=== PATIENT | male | born 1990 ===

== ENCOUNTER 2017-12-06 21:00 | Emergency (ER) | payer SELFPAY ==
[2017-12-06] MEDS ORDERED: Naproxen TAB* 250 MG PO ONE (22:45)
--- NOTE | 2017-12-06 22:52 | UC ---
Complaint Male HPI - HPI Summary HPI Summary: 27 yo HM recently moved from [place] c/o right testicular pain associated with swelling, erythema and tenderness noted this AM, denies penile d/c, dysuria, currently not sexually active, no f/c or playing sports, came in because he couldn't "take the pain anymore" - History of Current Complaint Chief Complaint: UCGeneralIllness Stated Complaint: GROIN PAIN Time Seen by Provider: 12/06/17 22:23 Hx Obtained From: Patient Onset/Duration: Sudden Onset, Still Present Timing: Constant Severity Initially: Moderate Severity Currently: Moderate Pain Intensity: 8 - Allergies/Home Medications Allergies/Adverse Reactions: Allergies Allergy/AdvReac Type Severity Reaction Status Date / Time No Known Allergies Allergy Verified 12/06/17 22:27 Home Medications: Home Medications NK [No Home Medications Reported] 12/06/17 [History Confirmed 12/06/17] PMH/Surg Hx/FS Hx/Imm Hx - Additional Past Medical History Additional PMH: 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 - Surgical History Surgical History: Yes Surgery Procedure, Year, and Place: 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 - Social History Alcohol Use: Occasionally Substance Use Type: None Smoking Status (MU): Light Every Day Tobacco Smoker Type: Cigarettes Amount Used/How Often: < 1/2 ppd Review of Systems Constitutional: Negative Skin: Negative Eyes: Negative ENT: Negative Respiratory: Negative Cardiovascular: Negative Gastrointestinal: Negative Genitourinary: Other - right testicular pain Motor: Negative Neurovascular: Negative Musculoskeletal: Negative Neurological: Negative Psychological: Negative Is Patient Immunocompromised?: No All Other Systems Reviewed And Are Negative: Yes Physical Exam Triage Information Reviewed: Yes Vital Signs: Initial Vital Signs Temp 37.4 C 12/06/17 22:21 Pulse 97 12/06/17 22:21 Resp 18 12/06/17 22:21 BP 121/66 12/06/17 22:21 Pulse Ox 100 12/06/17 22:21 Eye Exam: Normal ENT Exam: Normal Dental Exam: Normal Neck exam: Normal Neck: Positive: 1 Respiratory Exam: Normal Cardiovascular Exam: Normal Abdominal Exam: Normal Male Genital Exam: Positive: Testicular Tenderness (R) - right testicle - whole testical is moderately TTP, erythematous and warm to touch, no discrete masses palpated, right testicle mildly riding higher than left, no epididymal tenderness. Negative: Lesions, Urethral Discharge Musculoskeletal Exam: Normal Neurological Exam: Normal Psychological Exam: Normal Skin Exam: Normal Complaint Male Course/Dx - Course Course Of Treatment: advised to go to [facility] for testicular US to r/o mass vs torsion vs infectious etiology - Differential Dx/Diagnosis Differential Diagnosis/HQI/PQRI: Epididymitis, Testicular Torsion Provider Diagnoses: right testicular pain Discharge - Sign-Out/Discharge Documenting (check all that apply): Discharge - Discharge Plan Condition: Stable Disposition: HOME Patient Education Materials: Scrotal Pain (ED) Referrals: No Primary Care Phys,NOPCP [Primary Care Provider] - Additional Instructions: Advised to go to [facility] for testicular Ultrasound - Billing Disposition and Condition Condition: STABLE Disposition: HOME
== END 2017-12-06 22:52 | disposition home or self-care (01) ==
LOC: UCCORT 21:00
DX: N50.811 Right testicular pain (principal); F17.210 Nicotine dependence, cigarettes, uncomplicated
CPT/HCPCS: 99202; A9270-GY; G0463